=== PATIENT | male | born 2000 | race Caucasian/White ===

== ENCOUNTER 2021-07-06 23:25 | Emergency (ER) | payer OTHER ==
[~2021-07-06] VITALS: Ht 182.9 cm; Wt 82.0 kg
--- NOTE | 2021-07-06 23:34 | PHYS DOC ---
Past History Past Medical History: Other Past Surgical History: Appendectomy, Tonsillectomy Smoking: Non-smoker Alcohol Use: None Drug Use: None Adult General HPI HPI Patient is a 21-year-old male, not up-to-date on tetanus who comes in with laceration to the distal tip of the right third finger that happened while at work 8 hours ago. States he cut it on a piece of rebar. Denies any other injuries. States he did wash it out and bandage it and kept working. Review of Systems Review of Systems Review of systems otherwise unremarkable except noted in HPI Allergies Allergies Allergies Coded Allergies Type Severity Reaction Last Updated Verified No Known Drug Allergies 07/28/14 No Physical Exam Physical Exam Constitutional: Well developed, well nourished, no acute distress, non-toxic appearance. [] HENT: Normocephalic, atraumatic, Skin: Warm, dry, no erythema, no rash. [] Extremities: Distal tip of third right finger with laceration on medial side, 1.5 cm, superficial, range of motion intact, neurovascular intact. Neurologic: Alert and oriented X 3, normal motor function, normal sensory function, no focal deficits noted. [] Psychologic: Affect normal, judgement normal, mood normal. [] EKG EKG [] Radiology/Procedures Radiology/Procedures 1.5 cm superficial laceration. Washed significantly with sterile water. Repaired with Steri-Strips. Bandage. Heart Score C/O Chest Pain: No Risk Factors: Risk Factors: DM, Current or recent (<one month) smoker, HTN, HLP, family history of CAD, obesity. Risk Scores: Risk Factors: DM, Current or recent (<one month) smoker, HTN, HLP, family history of CAD, obesity. Course & Med Decision Making Course & Med Decision Making Patient is a 21-year-old male who presents with a finger laceration Signs not concerning. Physical exam noted above. Washed significantly with sterile water. Steri-Strip repair. Bandaged. Given wound care instruction and materials for home. Started on antibiotics in ED. Updated tetanus. Given primary care information. Advised to call primary care physician on Friday to update on ED visit and/or establish care if need be and set up a follow-up visit for reevaluation. Advised on pain management at home. Gave strict return precautions to ED. Family grateful, verbalized understanding and agreed with plan of discharge. Dragon Disclaimer Dragon Disclaimer This electronic medical record was generated, in whole or in part, using a voice recognition dictation system. Departure Departure: Impression: Primary Impression: Finger laceration Disposition: HOME / SELF CARE / HOMELESS Condition: GOOD Referrals: PCP,NO (PCP) JOYCE CHRISTIE MD Patient Instructions: Laceration Care, Adult Additional Instructions: Thank you for coming into the emergency department tonight and allowing us to take care of you. Please read the attached information carefully to go back over things we discussed. Please keep the area clean dry and intact as we discussed and change material daily after warm soap and water wash. Please take your antibiotics until gone. Please follow-up with your primary care physician next week to discuss ED visit and for follow-up visit. Please come back to the ED with new or concerning symptoms as discussed. Scripts Amoxicillin/Potassium Clav (AUGMENTIN [id number] TABLET) 1 Each Tablet 1 TAB PO BID for laceration for 10 Days, #20 TAB 0 Refills Prov: JUAN MANUEL BATISTA MD 07/06/21 JUAN MANUEL BATISTA MD Jul 06, 2021 23:34
[2021-07-06 23:46] VITALS: BP 123/43
[2021-07-06] MEDS ORDERED: AMOX1TAB61 PO (23:52)
[2021-07-07] MEDS ORDERED: DIPH,PERTUSS(ACELL),TET VAC/PF 0.5 ML SYRINGE. VAX IM ONE
[2021-07-07] MEDS ORDERED: AMOXICILLIN/K CLAV 875/125MG TABLET. PO ONE (00:30)
== END 2021-07-07 | disposition home or self-care (01) ==
LOC: ER 23:25
DX: S61.212A Laceration without foreign body of right middle finger without damage to nail, initial encounter (principal); W26.8XXA Contact with other sharp object(s), not elsewhere classified, initial encounter; Y93.89 Activity, other specified; Y92.89 Other specified places as the place of occurrence of the external cause; Y99.8 Other external cause status
CPT/HCPCS: 90471; 90715; 99283-25